=== PATIENT | male | born 1975 | race Two or more races ===

== ENCOUNTER 2018-03-06 18:04 | Emergency (ER) | payer OTHER ==
[~2018-03-06] VITALS: Ht 165.1 cm; Wt 63.5 kg
[2018-03-06] MEDS ORDERED: ASPIR-TRIN325 MG PO (18:25)
[2018-03-06] MEDS ORDERED: CYCLOBENZAPRINE10 MG PO (18:26)
== END 2018-03-06 20:17 | disposition home or self-care (01) ==
LOC: ER 18:04
DX: M25.512 Pain in left shoulder (principal)

== ENCOUNTER → 2020-11-17 15:29 | Outpatient (CLI) | payer OTHER ==
[~2020-11-17 15:29] MED LIST: ASPIR-TRIN325 MG PO; CYCLOBENZAPRINE10 MG PO
== END | disposition home or self-care (01) ==
LOC: PPH VACUNA 15:29
DX: Z23 Encounter for immunization (principal)